=== PATIENT | male | born 1990 | race Caucasian/White ===

== ENCOUNTER 2022-10-09 00:19 | Inpatient (IN) | payer MEDICAID, OTHER ==
[~2022-10-09] VITALS: Ht 185.4 cm; Wt 114.8 kg
[2022-10-09 05:09] LABS: BASOPHILS % 0.4 % (0.0-2.0); EOSINOPHILS % 1.8 % (0.0-5.0); HEMATOCRIT. 40.2 % (42.0-52.0); HEMOGLOBIN. 13.8 g/dL (14.0-18.0); LYMPHOCYTES % 17.6 % (20.0-50.0); MEAN CORPUSCULAR HEMOGLOBIN 29.6 pg (28.0-32.0); MEAN CORPUSCULAR VOLUME 86.2 fL (80.0-94.0); MEAN PLATELET VOLUME 7.7 fl (7.4-10.4); MONOCYTES % 7.2 % (2.0-8.0); PLATELET 377 x1000/uL (130-400); RED BLOOD CELL COUNT 4.67 mill/uL (4.7-6.1); RED CELL DISTRIBUTION WIDTH 14.6 % (11.6-14.6)
[2022-10-09 05:17] LABS: CHLORIDE 101 mEq/L (98-107)
[2022-10-09] MEDS ORDERED: ONDANSETRON HCL 4MG/2ML INJ IV STA (06:27)
[2022-10-09] MEDS ORDERED: POTASSIUM CHLORIDE 20MEQ TABLET SR PO NR ×2 (06:45→13:15)
[2022-10-09] MEDS ORDERED: PIPERACILLIN/TAZ 3.375G PREMIX 50 ML IV NR (06:45)
[2022-10-09] MEDS ORDERED: KCL 10MEQ/50ML PREMIX 50 ML IV NR (06:45)
[2022-10-09] MEDS ORDERED: SODIUM CHLORIDE 0.9% 1,000 ML IV ONE ×2 (06:45→07:00)
[2022-10-09 08:31] LABS: CHLORIDE 99 mEq/L (98-107)
[2022-10-09] MEDS: VANCOMYCIN 1G PREMIX 200 ML IV NR (08:47)
[2022-10-09 08:49] LABS: ETHANOL BLOOD < 10 mg/dL
[2022-10-09 12:00] VITALS: BP 113/72
[2022-10-09] MEDS ORDERED: NALOXONE HCL 0.4MG/ML VIAL IV PRN (12:30)
[2022-10-09] MEDS: HYDROCODONE/ACETAMINOPHEN 5/325MG TABLET PO PRN ×3 (12:51→21:52)
[2022-10-09] MEDS ORDERED: ONDANSETRON HCL 4MG/2ML INJ IV PRN (13:15)
[2022-10-09 13:38] VITALS: BP 112/64
[2022-10-09] MEDS ORDERED: AMPH30CA PO (13:56)
[2022-10-09] MEDS: LEVOFLOXACIN 500MG PREMIX 100 ML IV SCH (14:49)
[2022-10-09 16:00] VITALS: BP 92/48
[2022-10-09] MEDS: VANCOMYCIN 1.25GM PMX (XELLIA) 250 ML IV SCH (17:14)
[2022-10-09 20:00] VITALS: BP 107/53
[2022-10-09] MEDS: ENOXAPARIN 40MG/0.4ML SYR SUBCUT SCH (20:50)
[2022-10-10] VITALS (7 sets, daily range): BP systolic 104–125; BP diastolic 60–100
[2022-10-10] MEDS: VANCOMYCIN 1.25GM PMX (XELLIA) 250 ML IV SCH ×3 (02:17→17:33)
[2022-10-10] MEDS: HYDROCODONE/ACETAMINOPHEN 5/325MG TABLET PO PRN ×5 (02:28→20:59)
[2022-10-10 09:50] LABS: CHLORIDE 109 mEq/L (98-107)
[2022-10-10 09:59] LABS: *AMPHETAMINES SCREEN URINE PRESUMTIVE POSITIVE (NEGATIVE); *BARBITURATES SCREEN URINE NEGATIVE (NEGATIVE); *BENZODIAZEPINES SCREEN URINE NEGATIVE (NEGATIVE); *COCAINE SCREEN URINE NEGATIVE (NEGATIVE); CANNABINOID URINE SCREEN NEGATIVE (NEGATIVE); METHADONE URINE SCREEN NEGATIVE (NEGATIVE); OPIATES URINE SCREEN PRESUMTIVE POSITIVE (NEGATIVE); PHENCYCLIDINE URINE SCREEN NEGATIVE (NEGATIVE)
[2022-10-10] MEDS: LEVOFLOXACIN 500MG PREMIX 100 ML IV SCH (11:19)
[2022-10-10 11:39] LABS: BASOPHILS % 0.6 % (0.0-2.0); EOSINOPHILS % 5.5 % (0.0-5.0); HEMATOCRIT. 34.8 % (42.0-52.0); HEMOGLOBIN. 12.1 g/dL (14.0-18.0); MEAN CORPUSCULAR HEMOGLOBIN 30.1 pg (28.0-32.0); MEAN CORPUSCULAR VOLUME 86.7 fL (80.0-94.0); MEAN PLATELET VOLUME 7.6 fl (7.4-10.4); MONOCYTES % 9.1 % (2.0-8.0); NEUTROPHILS % 56.8 % (40.0-76.0); PLATELET 330 x1000/uL (130-400); RED BLOOD CELL COUNT 4.02 mill/uL (4.7-6.1); RED CELL DISTRIBUTION WIDTH 14.6 % (11.6-14.6)
[2022-10-10] MEDS: ENOXAPARIN 40MG/0.4ML SYR SUBCUT SCH (19:43)
[2022-10-11] VITALS: BP_SYST 125; BP_DIAS 100; BP_DIAS 50
[2022-10-11] MEDS: NEOMY SULF/BACITRAC ZN/POLY OINT 28GM TOP SCH (00:13)
[2022-10-11] MEDS: VANCOMYCIN 1.25GM PMX (XELLIA) 250 ML IV SCH (01:06)
[2022-10-11 04:00] VITALS: BP 118/74
[2022-10-11] MEDS: HYDROCODONE/ACETAMINOPHEN 5/325MG TABLET PO PRN ×2 (05:57→17:55)
[2022-10-11 08:00] VITALS: BP 92/60
[2022-10-11] MEDS: DOCUSATE SODIUM SUGAR FREE 100MG/10ML UDC NG SCH (10:29)
[2022-10-11] MEDS ORDERED: VANCOMYCIN 1G PREMIX 200 ML IV SCH (11:00)
[2022-10-11 12:00] VITALS: BP 130/80
[2022-10-11] MEDS: LEVOFLOXACIN 500MG TABLET PO SCH (13:06)
[2022-10-11] MEDS: VANCOMYCIN 1G PREMIX 200 ML IV NR (13:07)
[2022-10-11 16:00] VITALS: BP 132/84
[2022-10-11 20:00] VITALS: BP 134/82
[2022-10-11] MEDS ORDERED: LACTULOSE 20G/30ML UDC PO PRN (21:00)
[2022-10-11] MEDS: VANCOMYCIN 1G PREMIX 200 ML IV SCH (21:13)
[2022-10-11] MEDS: METOPROLOL TARTRATE 50MG TABLET PO SCH (21:14)
[2022-10-11] MEDS: ENOXAPARIN 40MG/0.4ML SYR SUBCUT SCH (21:15)
[2022-10-12] VITALS: BP 116/74
[2022-10-12] MEDS: NEOMY SULF/BACITRAC ZN/POLY OINT 28GM TOP SCH ×2 (02:01→23:25)
[2022-10-12 04:00] VITALS: BP 126/70
[2022-10-12] MEDS: VANCOMYCIN 1G PREMIX 200 ML IV SCH ×3 (04:19→21:00)
[2022-10-12 07:54] LABS: CHLORIDE 105 mEq/L (98-107)
[2022-10-12 08:00] VITALS: BP 130/95
[2022-10-12] MEDS ORDERED: POTASSIUM CHLORIDE 20MEQ TABLET SR PO NR (09:30)
[2022-10-12] MEDS: METOPROLOL TARTRATE 50MG TABLET PO SCH ×2 (09:54→21:32)
[2022-10-12] MEDS: DOCUSATE SODIUM SUGAR FREE 100MG/10ML UDC NG SCH (09:54)
[2022-10-12 12:00] VITALS: BP 131/93
[2022-10-12] MEDS: LEVOFLOXACIN 500MG TABLET PO SCH (14:47)
[2022-10-12] MEDS: HYDROCODONE/ACETAMINOPHEN 5/325MG TABLET PO PRN ×2 (15:41→20:31)
[2022-10-12 16:00] VITALS: BP 117/78
[2022-10-12 20:00] VITALS: BP 130/77
[2022-10-12] MEDS: ENOXAPARIN 40MG/0.4ML SYR SUBCUT SCH (20:31)
[2022-10-13] VITALS: BP 108/68
[2022-10-13] MEDS: HYDROCODONE/ACETAMINOPHEN 5/325MG TABLET PO PRN ×4 (02:59→20:17)
[2022-10-13 04:00] VITALS: BP 122/52
[2022-10-13] MEDS: VANCOMYCIN 1G PREMIX 200 ML IV SCH ×3 (04:55→20:18)
[2022-10-13 08:00] VITALS: BP 117/66
[2022-10-13] MEDS: METOPROLOL TARTRATE 50MG TABLET PO SCH ×2 (09:12→20:17)
[2022-10-13] MEDS ORDERED: SULF1TAB48 MT (11:34)
[2022-10-13] MEDS ORDERED: METO-539 PO (11:34)
[2022-10-13] MEDS ORDERED: AMOX1TAB16 MT (11:34)
[2022-10-13] MEDS: LEVOFLOXACIN 500MG TABLET PO SCH (11:52)
[2022-10-13 12:00] VITALS: BP 112/68
[2022-10-13 16:00] VITALS: BP 105/65
[2022-10-13 20:00] VITALS: BP 122/77
[2022-10-13] MEDS: ENOXAPARIN 40MG/0.4ML SYR SUBCUT SCH (20:16)
[2022-10-13] MEDS: NEOMY SULF/BACITRAC ZN/POLY OINT 28GM TOP SCH (23:51)
[2022-10-14] VITALS: BP 104/51
[2022-10-14] MEDS: HYDROCODONE/ACETAMINOPHEN 5/325MG TABLET PO PRN ×3 (00:11→10:16)
[2022-10-14 04:00] VITALS: BP 99/59
[2022-10-14] MEDS: VANCOMYCIN 1G PREMIX 200 ML IV SCH ×2 (04:42→13:00)
[2022-10-14 08:00] VITALS: BP 108/68
[2022-10-14] MEDS: METOPROLOL TARTRATE 50MG TABLET PO SCH ×2 (10:16→21:53)
[2022-10-14] MEDS: LEVOFLOXACIN 500MG TABLET PO SCH (10:16)
[2022-10-14 12:00] VITALS: BP 112/72
[2022-10-14] MEDS: ENOXAPARIN 30MG/0.3ML SYR SUBCUT SCH (15:05)
[2022-10-14 16:00] VITALS: BP 91/40
[2022-10-14 20:00] VITALS: BP 118/68
[2022-10-14] MEDS: NEOMY SULF/BACITRAC ZN/POLY OINT 28GM TOP SCH (23:15)
[2022-10-15] VITALS: BP 97/54
[2022-10-15 04:00] VITALS: BP 99/54
[2022-10-15 08:00] VITALS: BP 106/66
[2022-10-15] MEDS: ENOXAPARIN 30MG/0.3ML SYR SUBCUT SCH ×3 (10:05→21:29)
[2022-10-15] MEDS: METOPROLOL TARTRATE 50MG TABLET PO SCH ×2 (10:06→21:29)
[2022-10-15 12:00] VITALS: BP 95/65
[2022-10-15 16:00] VITALS: BP 131/59
[2022-10-15 20:00] VITALS: BP 122/75
[2022-10-15] MEDS ORDERED: NALOXONE HCL 0.4MG/ML VIAL IV PRN (20:15)
[2022-10-15] MEDS: HYDROCODONE/ACETAMINOPHEN 10/325MG TABLET PO PRN (21:28)
[2022-10-15] MEDS: NEOMY SULF/BACITRAC ZN/POLY OINT 28GM TOP SCH (23:15)
[2022-10-16] VITALS: BP 115/62
[2022-10-16 04:00] VITALS: BP 104/59
[2022-10-16] MEDS: HYDROCODONE/ACETAMINOPHEN 10/325MG TABLET PO PRN ×2 (07:12→20:26)
[2022-10-16 08:00] VITALS: BP 127/69
[2022-10-16] MEDS: ENOXAPARIN 30MG/0.3ML SYR SUBCUT SCH ×2 (08:41→20:25)
[2022-10-16] MEDS: METOPROLOL TARTRATE 50MG TABLET PO SCH ×2 (09:04→20:25)
[2022-10-16 12:00] VITALS: BP 125/62
[2022-10-16 16:00] VITALS: BP 132/72
[2022-10-16 20:00] VITALS: BP 129/69
[2022-10-16] MEDS: NEOMY SULF/BACITRAC ZN/POLY OINT 28GM TOP SCH (23:52)
[2022-10-17] VITALS: BP 103/66
[2022-10-17 04:00] VITALS: BP 108/75
[2022-10-17 08:00] VITALS: BP 110/58
[2022-10-17] MEDS: HYDROCODONE/ACETAMINOPHEN 10/325MG TABLET PO PRN ×2 (08:26→18:01)
[2022-10-17] MEDS: METOPROLOL TARTRATE 50MG TABLET PO SCH ×2 (08:26→21:48)
[2022-10-17] MEDS: ENOXAPARIN 30MG/0.3ML SYR SUBCUT SCH ×2 (08:27→21:48)
[2022-10-17 12:00] VITALS: BP 110/68
[2022-10-17 15:44] VITALS: BP 116/58
[2022-10-17 16:16] LABS: BASOPHILS % 0.9 % (0.0-2.0); EOSINOPHILS % 2.8 % (0.0-5.0); HEMATOCRIT. 41.6 % (42.0-52.0); HEMOGLOBIN. 14.4 g/dL (14.0-18.0); LYMPHOCYTES % 34.7 % (20.0-50.0); MEAN CORPUSCULAR HEMOGLOBIN 30.4 pg (28.0-32.0); MEAN CORPUSCULAR VOLUME 87.7 fL (80.0-94.0); MEAN PLATELET VOLUME 7.1 fl (7.4-10.4); MONOCYTES % 9.1 % (2.0-8.0); NEUTROPHILS % 52.5 % (40.0-76.0); PLATELET 487 x1000/uL (130-400); RED BLOOD CELL COUNT 4.74 mill/uL (4.7-6.1); RED CELL DISTRIBUTION WIDTH 14.7 % (11.6-14.6)
[2022-10-17 17:22] LABS: CHLORIDE 110 mEq/L (98-107)
[2022-10-17 20:00] VITALS: BP 121/81
[2022-10-17] MEDS: NEOMY SULF/BACITRAC ZN/POLY OINT 28GM TOP SCH (23:15)
[2022-10-18] VITALS: BP 117/73
[2022-10-18 04:00] VITALS: BP 111/76
[2022-10-18 08:00] VITALS: BP 138/83
[2022-10-18 09:29] LABS: BASOPHILS % 1.1 % (0.0-2.0); EOSINOPHILS % 2.9 % (0.0-5.0); HEMATOCRIT. 42.2 % (42.0-52.0); HEMOGLOBIN. 14.2 g/dL (14.0-18.0); LYMPHOCYTES % 34.2 % (20.0-50.0); MEAN CORPUSCULAR HEMOGLOBIN 29.8 pg (28.0-32.0); MEAN CORPUSCULAR VOLUME 88.3 fL (80.0-94.0); MEAN PLATELET VOLUME 7.3 fl (7.4-10.4); MONOCYTES % 9.7 % (2.0-8.0); NEUTROPHILS % 52.1 % (40.0-76.0); PLATELET 458 x1000/uL (130-400); RED BLOOD CELL COUNT 4.78 mill/uL (4.7-6.1); RED CELL DISTRIBUTION WIDTH 14.9 % (11.6-14.6)
[2022-10-18 09:56] LABS: CHLORIDE 110 mEq/L (98-107)
[2022-10-18] MEDS: METOPROLOL TARTRATE 50MG TABLET PO SCH ×2 (10:22→21:00)
[2022-10-18] MEDS: HYDROCODONE/ACETAMINOPHEN 10/325MG TABLET PO PRN ×2 (10:23→21:34)
[2022-10-18] MEDS: ENOXAPARIN 30MG/0.3ML SYR SUBCUT SCH ×2 (10:23→21:35)
[2022-10-18 12:00] VITALS: BP 113/74
[2022-10-18 16:00] VITALS: BP 117/67
[2022-10-18 20:00] VITALS: BP 107/67
[2022-10-18] MEDS: NEOMY SULF/BACITRAC ZN/POLY OINT 28GM TOP SCH (22:54)
[2022-10-19] VITALS: BP 121/65
[2022-10-19] MEDS: ACETAMINOPHEN 325MG TABLET PO PRN ×2 (01:41→22:15)
[2022-10-19 04:00] VITALS: BP 102/66
[2022-10-19 08:00] VITALS: BP 117/68
[2022-10-19 08:38] LABS: BASOPHILS % 0.8 % (0.0-2.0); EOSINOPHILS % 3.1 % (0.0-5.0); HEMATOCRIT. 41.5 % (42.0-52.0); LYMPHOCYTES % 38.6 % (20.0-50.0); MEAN CORPUSCULAR HEMOGLOBIN 29.6 pg (28.0-32.0); MEAN PLATELET VOLUME 6.8 fl (7.4-10.4); MONOCYTES % 6.6 % (2.0-8.0); NEUTROPHILS % 50.9 % (40.0-76.0); PLATELET 448 x1000/uL (130-400); RED BLOOD CELL COUNT 4.71 mill/uL (4.7-6.1); RED CELL DISTRIBUTION WIDTH 14.6 % (11.6-14.6)
[2022-10-19 08:45] LABS: CHLORIDE 105 mEq/L (98-107)
[2022-10-19] MEDS: METOPROLOL TARTRATE 50MG TABLET PO SCH ×2 (09:51→21:00)
[2022-10-19] MEDS: ENOXAPARIN 30MG/0.3ML SYR SUBCUT SCH ×2 (09:52→22:14)
[2022-10-19 12:00] VITALS: BP 114/71
[2022-10-19 16:00] VITALS: BP 74/68
[2022-10-19] MEDS: HYDROCODONE/ACETAMINOPHEN 10/325MG TABLET PO PRN (17:50)
[2022-10-19 20:00] VITALS: BP 108/64
[2022-10-19] MEDS: NEOMY SULF/BACITRAC ZN/POLY OINT 28GM TOP SCH (23:15)
[2022-10-20] VITALS: BP 100/60
[2022-10-20 04:00] VITALS: BP 99/60
[2022-10-20] MEDS: HYDROCODONE/ACETAMINOPHEN 10/325MG TABLET PO PRN ×2 (05:34→20:27)
[2022-10-20 08:00] VITALS: BP 93/56
[2022-10-20] MEDS: METOPROLOL TARTRATE 50MG TABLET PO SCH ×2 (09:43→20:27)
[2022-10-20] MEDS: ENOXAPARIN 30MG/0.3ML SYR SUBCUT SCH ×2 (09:46→20:26)
[2022-10-20 12:00] VITALS: BP 115/70
[2022-10-20 16:00] VITALS: BP 111/66
[2022-10-20 20:00] VITALS: BP 117/79
[2022-10-20] MEDS ORDERED: NALOXONE HCL 0.4MG/ML VIAL IV PRN (20:45)
[2022-10-20] MEDS: NEOMY SULF/BACITRAC ZN/POLY OINT 28GM TOP SCH (23:14)
[2022-10-21] VITALS: BP 111/69
[2022-10-21 04:00] VITALS: BP 115/75
[2022-10-21] MEDS: HYDROCODONE/ACETAMINOPHEN 10/325MG TABLET PO PRN (06:20)
[2022-10-21 08:00] VITALS: BP 115/70
[2022-10-21] MEDS: ENOXAPARIN 30MG/0.3ML SYR SUBCUT SCH (08:44)
[2022-10-21] MEDS: METOPROLOL TARTRATE 50MG TABLET PO SCH (08:45)
[2022-10-21 12:00] VITALS: BP 114/72
[2022-10-21 16:00] VITALS: BP 117/71
== END 2022-10-21 17:25 | disposition home health service (06) | DRG 720 ==
LOC: ER 00:19 → 8WST 09:13 → EDBEDREQTM 09:16 → EDBEDREQ 09:16 → ENRESERV 09:32 → 6EST 10-17 17:16
PROVIDERS: ADMIT Internal Medicine; ATTEND Internal Medicine
DX: A41.9 Sepsis, unspecified organism (principal); L03.115 Cellulitis of right lower limb; L03.116 Cellulitis of left lower limb; F15.90 Other stimulant use, unspecified, uncomplicated; E87.6 Hypokalemia; Z20.822 Contact with and (suspected) exposure to COVID-19; S90.812A Abrasion, left foot, initial encounter; S90.811A Abrasion, right foot, initial encounter; S82.61XA Displaced fracture of lateral malleolus of right fibula, initial encounter for closed fracture; S82.62XA Displaced fracture of lateral malleolus of left fibula, initial encounter for closed fracture; X58.XXXA Exposure to other specified factors, initial encounter; Y93.89 Activity, other specified; Y92.89 Other specified places as the place of occurrence of the external cause; Y99.8 Other external cause status
CPT/HCPCS: 36415; 71045; 73610; 73630; 80048; 80053; 80202; 80305; 80320; 83605; 83615; 83735; 83880; 85025; 87426; 93005; 93970; 97116; 97162; 97165; 97530; 97760; 99285; J1650; J1956; J2405; J2543; J3370; J3480; J7060; G0480

== ENCOUNTER 2022-12-17 20:27 | Emergency (ER) | payer MEDICAID, OTHER ==
[~2022-12-17] VITALS: Ht 182.9 cm; Wt 103.0 kg
[~2022-12-17 20:27] MED LIST: AMOX1TAB16 MT; AMPH30CA PO; METO-539 PO; SULF1TAB48 MT
[2022-12-17] MEDS ORDERED: NAPROXEN 250MG TABLET PO ONE (22:45)
[2022-12-17 23:42] LABS: BASOPHILS % 0.5 % (0.0-2.0); EOSINOPHILS % 2.9 % (0.0-5.0); HEMATOCRIT. 40.7 % (42.0-52.0); HEMOGLOBIN. 13.9 g/dL (14.0-18.0); LYMPHOCYTES % 31.5 % (20.0-50.0); MEAN CORPUSCULAR HEMOGLOBIN 29.3 pg (28.0-32.0); MEAN CORPUSCULAR VOLUME 85.8 fL (80.0-94.0); MEAN PLATELET VOLUME 7.5 fl (7.4-10.4); MONOCYTES % 7.5 % (2.0-8.0); NEUTROPHILS % 57.6 % (40.0-76.0); PLATELET 394 x1000/uL (130-400); RED BLOOD CELL COUNT 4.74 mill/uL (4.7-6.1); RED CELL DISTRIBUTION WIDTH 13.8 % (11.6-14.6)
[2022-12-17 23:46] LABS: CHLORIDE 108 mEq/L (98-107)
[2022-12-18 00:20] LABS: *AMPHETAMINES SCREEN URINE PRESUMTIVE POSITIVE (NEGATIVE); *BARBITURATES SCREEN URINE NEGATIVE (NEGATIVE); *BENZODIAZEPINES SCREEN URINE NEGATIVE (NEGATIVE); *COCAINE SCREEN URINE NEGATIVE (NEGATIVE); CANNABINOID URINE SCREEN NEGATIVE (NEGATIVE); METHADONE URINE SCREEN NEGATIVE (NEGATIVE); OPIATES URINE SCREEN NEGATIVE (NEGATIVE); PHENCYCLIDINE URINE SCREEN NEGATIVE (NEGATIVE)
[2022-12-18] MEDS ORDERED: NAPR-681 MT (02:32)
[2022-12-18] MEDS ORDERED: CEPH500C2 MT (02:32)
[2022-12-18] MEDS ORDERED: SULF1TAB48 MT (02:32)
[2022-12-18] MEDS ORDERED: POTA10CA42 MT (02:38)
[2022-12-18 03:00] VITALS: BP 128/75
== END 2022-12-18 03:11 | disposition home or self-care (01) ==
LOC: ER 20:40
DX: M25.572 Pain in left ankle and joints of left foot (principal); M25.571 Pain in right ankle and joints of right foot; L03.116 Cellulitis of left lower limb; L03.115 Cellulitis of right lower limb; R06.02 Shortness of breath; E87.6 Hypokalemia; Z90.49 Acquired absence of other specified parts of digestive tract; Z98.890 Other specified postprocedural states
CPT/HCPCS: 36415; 71045; 73610; 73630; 80053; 80305; 83605; 83880; 84484; 85025; 85379; 93005; 93970; 99285

== ENCOUNTER 2022-12-22 17:56 | Emergency (ER) | payer MEDICAID, OTHER ==
[~2022-12-22] VITALS: Ht 172.7 cm; Wt 78.0 kg
[~2022-12-22 17:56] MED LIST changes: +CEPH500C2 MT; +NAPR-681 MT; +POTA10CA42 MT
[2022-12-23] MEDS ORDERED: IBUP-2029 MT (01:51)
[2022-12-23] MEDS ORDERED: AMOX1TAB16 MT (01:51)
[2022-12-23 01:58] VITALS: BP 128/72
== END 2022-12-23 02:01 | disposition home or self-care (01) ==
LOC: ER 17:56
DX: S02.401A Maxillary fracture, unspecified side, initial encounter for closed fracture (principal); Z90.49 Acquired absence of other specified parts of digestive tract; Z98.890 Other specified postprocedural states; S06.9XAA Unspecified intracranial injury with loss of consciousness status unknown, initial encounter; Y04.0XXA Assault by unarmed brawl or fight, initial encounter; Y93.89 Activity, other specified; Y92.89 Other specified places as the place of occurrence of the external cause; Y99.8 Other external cause status
CPT/HCPCS: 70450; 70486; 99284; Z7610

== ENCOUNTER 2023-09-08 23:45 | Emergency (ER) | payer MEDICAID, OTHER ==
[~2023-09-08] VITALS: Ht 182.9 cm; Wt 106.6 kg
[~2023-09-08 23:45] MED LIST changes: +IBUP-2029 MT; -POTA10CA42 MT; +POTA10CA83 MT
[2023-09-08 23:59] VITALS: TEMP 98.7; O2SAT 98
[2023-09-09] MEDS ORDERED: KETOROLAC 30MG/ML VIAL IM ONE (00:45)
[2023-09-09] MEDS ORDERED: LIDO700A15 TP (01:30)
[2023-09-09] MEDS ORDERED: NAPR-1176 MT (01:30)
[2023-09-09] MEDS ORDERED: CYCL5TAB MT (01:30)
[2023-09-09 01:43] VITALS: BP 130/86; PULSE 96; RESP 18
== END 2023-09-09 01:44 | disposition home or self-care (01) ==
LOC: ER 09-09 00:09
DX: M54.2 Cervicalgia (principal); Z79.899 Other long term (current) drug therapy; Z90.49 Acquired absence of other specified parts of digestive tract; V49.9XXA Car occupant (driver) (passenger) injured in unspecified traffic accident, initial encounter; Y93.89 Activity, other specified; Y92.89 Other specified places as the place of occurrence of the external cause; Y99.8 Other external cause status
CPT/HCPCS: 99285; J1885; Z7610

== ENCOUNTER 2025-08-31 16:36 | Emergency (ER) | payer MEDICAID ==
[~2025-08-31] VITALS: Ht 182.9 cm; Wt 98.0 kg
[~2025-08-31 16:36] MED LIST changes: +CYCL5TAB3 MT; +IBUP-1455 MT; -IBUP-2029 MT; +LIDO-53 TP; +NAPR-1176 MT; -POTA10CA83 MT; +POTA10CA93 MT
[2025-08-31 16:39] VITALS: TEMP 36.8; O2SAT 99
[2025-08-31 17:49] LABS: BASOPHILS % 0.4 % (0.0-2.0); EOSINOPHILS % 2.1 % (0.0-5.0); HEMATOCRIT. 45.7 % (42.0-52.0); HEMOGLOBIN. 15.2 g/dL (14.0-18.0); LYMPHOCYTES % 21.1 % (20.0-50.0); MEAN PLATELET VOLUME 7.0 fl (7.4-10.4); MONOCYTES % 11.5 % (2.0-8.0); NEUTROPHILS % 64.9 % (40.0-76.0); PLATELET 413 x1000/uL (130-400); RED BLOOD CELL COUNT 5.36 mill/uL (4.7-6.1); RED CELL DISTRIBUTION WIDTH 14.6 % (11.6-14.6)
[2025-08-31 18:03] LABS: CREATININE 1.0 mg/dL (0.6-1.3); UREA NITROGEN BLOOD 10 mg/dL (9-23)
[2025-08-31 18:05] LABS: ASPARTATE AMINOTRANSFERASE 16 IU/L (<34); BILIRUBIN DIRECT 0.1 mg/dL (<=3.0)
[2025-08-31 18:06] LABS: BILIRUBIN TOTAL 0.3 mg/dL (0.1-1.0); PROTEIN TOTAL 7.5 g/dL (6.0-8.3)
[2025-08-31 18:27] VITALS: BP 121/83; PULSE 94; RESP 16
[2025-08-31] MEDS: KETOROLAC 15MG/ML VIAL IV ONE (18:27)
[2025-08-31] MEDS: ONDANSETRON HCL 4MG/2ML INJ IV ONE (18:29)
[2025-08-31] MEDS: FAMOTIDINE 20MG/2ML VIAL IV ONE (18:29)
[2025-08-31] MEDS: SODIUM CHLORIDE 0.9% 1,000 ML IV ONE (18:29)
[2025-08-31] MEDS ORDERED: ONDA-239 PO (18:43)
[2025-08-31] MEDS ORDERED: IMOD MT (18:43)
[2025-08-31] MEDS ORDERED: FAMO-135 MT (18:43)
[2025-08-31] MEDS: LOPERAMIDE HCL 2MG CAPSULE PO ONE (19:00)
[2025-08-31] MEDS: METOCLOPRAMIDE HCL 10MG/2ML VIAL IV ONE (20:16)
== END 2025-08-31 20:24 | disposition home or self-care (01) ==
LOC: ER 16:36 → CANBEDREQ 18:48 → ER 20:24
DX: K52.9 Noninfective gastroenteritis and colitis, unspecified (principal); Z90.49 Acquired absence of other specified parts of digestive tract; Z79.899 Other long term (current) drug therapy
CPT/HCPCS: 80076; 80048; 80320; 83690; 83735; 85025; 36415; 74176; 96361; 96374; 96375; 99285; J1308; J1885; J2765; J2405; J7030; G0480